=== PATIENT | female | born 1935 | race Caucasian/White ===

== ENCOUNTER 2016-11-20 18:36 | Outpatient (CLI) | payer MEDICARE, BC | END 2016-11-20 18:37 | disposition home or self-care (01) | DX: M79.605 Pain in left leg (principal) ==

== ENCOUNTER 2016-11-22 15:54 | Outpatient (CLI) | payer MEDICARE, BC | END 2016-11-22 15:55 | disposition home or self-care (01) | DX: M79.605 Pain in left leg (principal) ==

== ENCOUNTER 2017-02-01 16:36 | Emergency (ER) | payer MEDICARE, BC ==
[2017-02-01] MEDS ORDERED: AMOX/CLAV 875 MG/125 MG TABLET PO STA (16:55)
[2017-02-01] MEDS ORDERED: TETANUS/DIPHTHERIA/PERTUSSIS 0.5 ML SYRINGE IM ONE ×2 (16:55→17:04)
[2017-02-01] MEDS ORDERED: AMOX/CLAV 875 MG/125 MG TABLET PO ONE (17:04)
== END 2017-02-01 17:30 | disposition home or self-care (01) ==
DX: S61.252A Open bite of right middle finger without damage to nail, initial encounter (principal); W54.0XXA Bitten by dog, initial encounter; Z23 Encounter for immunization; I11.0 Hypertensive heart disease with heart failure; I50.9 Heart failure, unspecified; E78.00 Pure hypercholesterolemia, unspecified; F03.90 Unspecified dementia, unspecified severity, without behavioral disturbance, psychotic disturbance, mood disturbance, and anxiety; M19.90 Unspecified osteoarthritis, unspecified site
CPT/HCPCS: 87070; 87077; 87181; 87205; 90471; 90715; 99283; A9270

== ENCOUNTER 2017-02-02 14:02 | Outpatient (CLI) | payer MEDICARE, BC | END 2017-02-02 23:59 | DX: E61.1 Iron deficiency (principal); Z51.81 Encounter for therapeutic drug level monitoring ==

== ENCOUNTER 2017-05-31 11:30 | Outpatient (CLI) | payer MEDICARE, BC | END 2017-05-31 11:31 | LOC: LAB.R 11:30 | PROVIDERS: ATTEND Family Medicine | DX: R41.82 Altered mental status, unspecified (principal) | CPT/HCPCS: 87086 ==